=== PATIENT | female | born 1935 | race Caucasian/White ===

== ENCOUNTER 2017-06-07 13:31 | Emergency (ER) | payer MEDICARE ==
[~2017-06-07] VITALS: Ht 165.1 cm; Wt 69.6 kg
[~2017-06-07 13:31] MED LIST: AMLO10TA4 PO; METO25TA2 PO
[2017-06-07] MEDS ORDERED: SODIUM CHLORIDE 0.9% 1,000ML IVBOLUS ONE (14:00)
[2017-06-07] MEDS ORDERED: SODIUM CHLORIDE FLUSH 10ML SYR IVF ONE (14:00)
[2017-06-07] MEDS ORDERED: SOLI10TA2 PO (14:07)
[2017-06-07] MEDS ORDERED: ANAS1TAB PO (14:07)
[2017-06-07 14:08] LABS: HEMATOCRIT 41.5 % (34.6-47.8)
[2017-06-07 14:19] LABS: ASPARTATE AMINO TRANSFERASE 4 U/L (15-37); BLOOD UREA NITROGEN 17 mg/dL (7-18)
[2017-06-07] MEDS ORDERED: OMNIPAQUE 350 MG/ML, 100ML BOTTLE ONE (16:51)
[2017-06-07 16:55] VITALS: BP 125/75
== END 2017-06-07 16:57 | disposition home or self-care (01) ==
LOC: ED 16:10
DX: K57.32 Diverticulitis of large intestine without perforation or abscess without bleeding (principal); I11.9 Hypertensive heart disease without heart failure
CPT/HCPCS: 36415; 74177; 80053; 81001; 83605; 83690; 85025; 85610; 87086; 96360; 96361; 99285; J7030; Q9967

== ENCOUNTER 2017-11-26 14:52 | Inpatient (IN) | payer MEDICARE, OTHER ==
[~2017-11-26] VITALS: Ht 157.5 cm; Wt 78.6 kg
[~2017-11-26 14:52] MED LIST changes: +ANAS1TAB PO; +SOLI10TA2 PO
[2017-11-26] MEDS ORDERED: MORPHINE SULFATE 4 MG/ML, 1ML ONE ×2 (15:25→17:03)
[2017-11-26] MEDS ORDERED: ONDANSETRON ODT 4 MG ONE (15:25)
[2017-11-26] MEDS: MORPHINE SULFATE 4 MG/ML, 1ML IVPush PRN ×2 (15:29→17:05)
[2017-11-26] MEDS ORDERED: SODIUM CHLORIDE FLUSH 10ML SYR IVF ONE (15:30)
[2017-11-26] MEDS ORDERED: ONDANSETRON ODT 4 MG PO ONE (15:30)
[2017-11-26] MEDS ORDERED: ASPI-515 PO (17:09)
[2017-11-26] MEDS ORDERED: SODIUM CHLORIDE 0.9% 1,000 ML IV ONE ×2 (17:22→17:23)
[2017-11-26] MEDS ORDERED: MORPHINE SULFATE 4 MG/ML, 1ML IVPush PRN (17:30)
[2017-11-26] MEDS ORDERED: SODIUM CHLORIDE FLUSH 10ML SYR IVF PRN (17:30)
[2017-11-26 17:50] LABS: INTERNATIONAL NORMALIZED RATIO 0.99 (0.93-1.1); PROTHROMBIN TIME 10.3 Seconds (9.6-11.5)
[2017-11-26 17:55] LABS: CHLORIDE 111 mmol/L (98-107)
[2017-11-26 17:58] LABS: BASOPHILS # (AUTO) 0.02 x10^3/uL (0-0.1); BASOPHILS % (AUTO) 0 % (0-1); EOSINOPHILS # (AUTO) 0.01 x10^3/uL (0-0.4); EOSINOPHILS % (AUTO) 0 % (1-7); LYMPHOCYTES # (AUTO) 0.79 x10^3/uL (1-3.4); LYMPHOCYTES % (AUTO) 7 % (22-44); MD NO; MEAN CORPUSCULAR HEMOGLOBIN 29.9 pg (27.0-34.8); MEAN CORPUSCULAR HGB CONC 33.6 g/dL (32.4-35.8); MEAN CORPUSCULAR VOLUME 88.9 fL (80-100); MEAN PLATELET VOLUME 8.1 fL (7.4-10.4); MONOCYTES # (AUTO) 0.34 x10^3/uL (0.2-0.8); MONOCYTES % (AUTO) 3 % (2-9); NEUTROPHILS # (AUTO) 11.02 x10^3/uL (1.8-6.8); NEUTROPHILS % (AUTO) 91 % (42-75); PLATELET COUNT 312 x10^3/uL (130-400); RED BLOOD COUNT 4.81 x10^6/uL (3.82-5.3); RED CELL DISTRIBUTION WIDTH 14.1 % (9.6-15.2)
[2017-11-26 18:02] LABS: ALANINE AMINOTRANSFERASE 15 U/L (12-78); ALBUMIN 3.5 g/dL (3.4-5.0); ALKALINE PHOSPHATASE 130 U/L (45-117); ANION GAP 9 mmol/L (5-15); BILIRUBIN,TOTAL 0.3 mg/dL (0.2-1.0); CALCIUM 9.2 mg/dL (8.5-10.1); CREATININE 1.09 mg/dL (0.55-1.02); TOTAL PROTEIN 7.1 g/dL (6.4-8.2)
[2017-11-26] MEDS ORDERED: POLYETHYLENE GLYCOL 17 GM PACKET PO PRN (21:00)
[2017-11-26] MEDS ORDERED: DIAZEPAM 5 MG/ML, 2ML IV PRN (21:00)
[2017-11-26] MEDS ORDERED: ACETAMINOPHEN 325 MG TABLET PO PRN (21:00)
[2017-11-26] MEDS ORDERED: morphine SULFATE 10 MG/ML, 1ML IVPush PRN (21:00)
[2017-11-26] MEDS ORDERED: hydrALAzine 20 MG/ML, 1ML IVPush PRN (21:00)
[2017-11-26] MEDS ORDERED: ONDANSETRON 2MG/ML, 2ML IVPush PRN (21:00)
[2017-11-26] MEDS ORDERED: BISACODYL 10 MG SUPP PR PRN (21:00)
[2017-11-26] MEDS ORDERED: DOCUSATE 100 MG CAPSULE PO PRN (21:00)
[2017-11-26 21:18] VITALS: BP 135/85
[2017-11-26 21:20] LABS: FREE T4 (FREE THYROXINE) 1.25 ng/dL (0.76-1.46); THYROID STIMULATING HORMONE 3.77 mIU/L (0.358-3.740)
[2017-11-26] MEDS: AMLODIPINE 5 MG TABLET PO SCH (21:21)
[2017-11-26] MEDS: METOPROLOL SUCCINATE 25 MG TAB.ER.24H PO SCH (21:22)
[2017-11-26] MEDS: HYDROcodone/APAP 5/325 TABLET PO PRN ×2 (21:22→22:00)
[2017-11-26 21:23] LABS: HEMOGLOBIN A1C 5.3 % (4.2-6.3)
[2017-11-26] MEDS: HEPARIN 5,000 UNITS/ML, 1ML SQ SCH (21:23)
[2017-11-26] MEDS: SODIUM CHLORIDE 0.9% 1,000 ML IV SCH (21:23)
[2017-11-27] MEDS: HYDROcodone/APAP 5/325 TABLET PO PRN ×5 (01:55→23:13)
[2017-11-27 02:00] VITALS: BP 146/82
[2017-11-27 05:21] LABS: BASOPHILS # (AUTO) 0.02 x10^3/uL (0-0.1); BASOPHILS % (AUTO) 0 % (0-1); EOSINOPHILS # (AUTO) 0.01 x10^3/uL (0-0.4); EOSINOPHILS % (AUTO) 0 % (1-7); LYMPHOCYTES % (AUTO) 9 % (22-44); MD NO; MEAN CORPUSCULAR HEMOGLOBIN 29.9 pg (27.0-34.8); MEAN CORPUSCULAR HGB CONC 33.8 g/dL (32.4-35.8); MEAN CORPUSCULAR VOLUME 88.4 fL (80-100); MEAN PLATELET VOLUME 7.9 fL (7.4-10.4); MONOCYTES # (AUTO) 0.29 x10^3/uL (0.2-0.8); MONOCYTES % (AUTO) 4 % (2-9); NEUTROPHILS # (AUTO) 6.75 x10^3/uL (1.8-6.8); NEUTROPHILS % (AUTO) 87 % (42-75); PLATELET COUNT 266 x10^3/uL (130-400); RED BLOOD COUNT 4.27 x10^6/uL (3.82-5.3); RED CELL DISTRIBUTION WIDTH 13.8 % (9.6-15.2)
[2017-11-27 05:25] LABS: CHLORIDE 109 mmol/L (98-107)
[2017-11-27 05:36] LABS: ALANINE AMINOTRANSFERASE 15 U/L (12-78); ALBUMIN 3.1 g/dL (3.4-5.0); ALKALINE PHOSPHATASE 118 U/L (45-117); ANION GAP 9 mmol/L (5-15); BILIRUBIN,TOTAL 0.5 mg/dL (0.2-1.0); CALCIUM 8.4 mg/dL (8.5-10.1); CHOL/HDL RATIO 5.1; CHOLESTEROL, TOTAL 179 mg/dL (140-239); CREATININE 1.05 mg/dL (0.55-1.02); HDL CHOL % 20 % (28-40); HDL CHOLESTEROL (DIRECT) 35 mg/dL (40-60); LDL CHOLESTEROL,CALCULATED 112 mg/dL (54-169); LDL/HDL RATIO 3.2 (0.5-3.0); TOTAL PROTEIN 6.4 g/dL (6.4-8.2); TRIGLYCERIDES 161 mg/dL (50-200); VLDL CHOLESTEROL 32 mg/dL (0-25)
[2017-11-27] MEDS: HEPARIN 5,000 UNITS/ML, 1ML SQ SCH ×4 (05:40→23:41)
[2017-11-27] MEDS: SODIUM CHLORIDE 0.9% 1,000 ML IV SCH (05:52)
[2017-11-27] MEDS: ASPIRIN 81 MG TABLET EC PO SCH (09:33)
[2017-11-27] MEDS: OXYBUTYNIN CHLORIDE 5 MG TABLET PO SCH ×3 (09:37→20:42)
[2017-11-27] MEDS: ANASTROZOLE 1 MG TABLET PO SCH (09:41)
[2017-11-27] MEDS: AMLODIPINE 5 MG TABLET PO SCH (09:43)
[2017-11-27 10:15] VITALS: BP 151/77
[2017-11-27 16:18] VITALS: BP 123/69
[2017-11-27 18:49] VITALS: BP 132/74
[2017-11-27] MEDS: METOPROLOL SUCCINATE 25 MG TAB.ER.24H PO SCH (21:00)
[2017-11-28 03:55] VITALS: BP 141/82
[2017-11-28] MEDS: HYDROcodone/APAP 5/325 TABLET PO PRN (04:13)
[2017-11-28 05:40] LABS: BASOPHILS # (AUTO) 0.03 x10^3/uL (0-0.1); BASOPHILS % (AUTO) 0 % (0-1); EOSINOPHILS # (AUTO) 0.14 x10^3/uL (0-0.4); EOSINOPHILS % (AUTO) 2 % (1-7); LYMPHOCYTES # (AUTO) 1.16 x10^3/uL (1-3.4); LYMPHOCYTES % (AUTO) 16 % (22-44); MD NO; MEAN CORPUSCULAR HEMOGLOBIN 29.8 pg (27.0-34.8); MEAN CORPUSCULAR HGB CONC 33.8 g/dL (32.4-35.8); MEAN CORPUSCULAR VOLUME 88.2 fL (80-100); MEAN PLATELET VOLUME 8.3 fL (7.4-10.4); MONOCYTES # (AUTO) 0.44 x10^3/uL (0.2-0.8); MONOCYTES % (AUTO) 6 % (2-9); NEUTROPHILS # (AUTO) 5.68 x10^3/uL (1.8-6.8); NEUTROPHILS % (AUTO) 76 % (42-75); PLATELET COUNT 271 x10^3/uL (130-400); RED BLOOD COUNT 4.46 x10^6/uL (3.82-5.3); RED CELL DISTRIBUTION WIDTH 13.8 % (9.6-15.2)
[2017-11-28 05:51] LABS: ANION GAP 11 mmol/L (5-15); CALCIUM 8.8 mg/dL (8.5-10.1); CHLORIDE 106 mmol/L (98-107)
[2017-11-28 05:53] LABS: CREATININE 0.93 mg/dL (0.55-1.02)
[2017-11-28] MEDS ORDERED: KETAMINE 10 MG/ML, 20ML ONE (08:48)
[2017-11-28] MEDS ORDERED: MIDAZOLAM 1 MG/ML, 2ML ONE (08:49)
[2017-11-28] MEDS ORDERED: FENTANYL PF 250 MCG/5ML ONE (08:49)
[2017-11-28] MEDS ORDERED: DEXMEDETOMIDINE 200 MCG/2 ML ONE (08:52)
[2017-11-28] MEDS ORDERED: FAMOTIDINE 20 MG/2 ML ONE (08:52)
[2017-11-28] MEDS: ASPIRIN 81 MG TABLET EC PO SCH (09:00)
[2017-11-28] MEDS ORDERED: DEXAMETHASONE 4 MG/ML, 1ML ONE (09:03)
[2017-11-28] MEDS ORDERED: PHENYLEPHRINE 10 MG/ML ONE (09:03)
[2017-11-28] MEDS ORDERED: KETOROLAC 30 MG/1 ML ONE (09:03)
[2017-11-28] MEDS ORDERED: PROPOFOL 10 MG/ML, 20ML ONE (09:32)
[2017-11-28] MEDS ORDERED: CEFAZOLIN 1,000 MG ONE (09:32)
[2017-11-28] MEDS ORDERED: SUCCINYLCHOLINE 20 MG/ML, 10ML ONE (09:32)
[2017-11-28] MEDS ORDERED: LABETALOL 5MG/ML, 20ML IV PRN (10:00)
[2017-11-28] MEDS ORDERED: PROMETHAZINE 25 MG/ML, 1ML IV PRN (10:00)
[2017-11-28] MEDS ORDERED: MEPERIDINE/PF 25MG/0.5ML IVPush PRN (10:00)
[2017-11-28] MEDS ORDERED: morphine SULFATE 10 MG/ML, 1ML IV PRN (10:00)
[2017-11-28] MEDS ORDERED: OXYcodone 5 MG/5 ML ORAL.SOL UDC PO PRN (10:00)
[2017-11-28] MEDS ORDERED: ACETAMINOPHEN 325 MG TABLET PO PRN (10:00)
[2017-11-28] MEDS ORDERED: hydrALAzine 20 MG/ML, 1ML IV PRN (10:00)
[2017-11-28] MEDS ORDERED: FENTANYL PF 100 MCG/2ML IV PRN (10:00)
[2017-11-28] MEDS ORDERED: OXYcodone 5 MG/5 ML ORAL.SOL UDC ONE (10:04)
[2017-11-28] MEDS ORDERED: FENTANYL PF 100 MCG/2ML ONE (10:04)
[2017-11-28] MEDS ORDERED: ACETAMINOPHEN 650 MG/20.3 ML UDC ONE (10:05)
[2017-11-28] MEDS: ANASTROZOLE 1 MG TABLET PO SCH (12:40)
[2017-11-28] MEDS: OXYBUTYNIN CHLORIDE 5 MG TABLET PO SCH ×3 (12:43→20:44)
[2017-11-28] MEDS: AMLODIPINE 5 MG TABLET PO SCH (12:43)
[2017-11-28 13:33] VITALS: BP 136/75
[2017-11-28] MEDS ORDERED: CEFAZOLIN PMX 1GM/50ML 50 ML IV SCH ×2 (17:00→18:00)
[2017-11-28] MEDS: HYDROcodone/APAP 7.5-325MG/15ML UDC PO PRN (18:43)
[2017-11-28 20:07] VITALS: BP 129/79
[2017-11-28] MEDS: METOPROLOL SUCCINATE 25 MG TAB.ER.24H PO SCH (20:44)
[2017-11-28] MEDS: DOCUSATE 100 MG CAPSULE PO SCH (20:45)
[2017-11-28 23:50] VITALS: BP 130/79
[2017-11-29] MEDS: CEFAZOLIN 1,000 MG in SODIUM CHLORIDE 0.9% 50 ML IV SCH ×2 (02:32→10:31)
[2017-11-29 03:50] VITALS: BP 135/75
[2017-11-29] MEDS: HYDROcodone/APAP 7.5-325MG/15ML UDC PO PRN ×6 (04:12→22:55)
[2017-11-29 05:27] LABS: BASOPHILS # (AUTO) 0.02 x10^3/uL (0-0.1); BASOPHILS % (AUTO) 0 % (0-1); EOSINOPHILS % (AUTO) 0 % (1-7); LYMPHOCYTES # (AUTO) 0.69 x10^3/uL (1-3.4); LYMPHOCYTES % (AUTO) 8 % (22-44); MD NO; MEAN CORPUSCULAR HEMOGLOBIN 30.2 pg (27.0-34.8); MEAN CORPUSCULAR HGB CONC 33.8 g/dL (32.4-35.8); MEAN CORPUSCULAR VOLUME 89.4 fL (80-100); MEAN PLATELET VOLUME 8.1 fL (7.4-10.4); MONOCYTES # (AUTO) 0.59 x10^3/uL (0.2-0.8); MONOCYTES % (AUTO) 7 % (2-9); NEUTROPHILS # (AUTO) 7.15 x10^3/uL (1.8-6.8); NEUTROPHILS % (AUTO) 85 % (42-75); PLATELET COUNT 264 x10^3/uL (130-400); RED BLOOD COUNT 3.71 x10^6/uL (3.82-5.3); RED CELL DISTRIBUTION WIDTH 13.8 % (9.6-15.2)
[2017-11-29 05:59] LABS: ANION GAP 7 mmol/L (5-15); CALCIUM 8.9 mg/dL (8.5-10.1); CHLORIDE 111 mmol/L (98-107); CREATININE 1.13 mg/dL (0.55-1.02)
[2017-11-29] MEDS: ENOXAPARIN 40 MG/0.4 ML SQ SCH (06:21)
[2017-11-29 07:18] VITALS: BP 156/80
[2017-11-29] MEDS: DOCUSATE 100 MG CAPSULE PO SCH ×2 (09:00→21:18)
[2017-11-29] MEDS: ASPIRIN 81 MG TABLET EC PO SCH (10:16)
[2017-11-29] MEDS: ANASTROZOLE 1 MG TABLET PO SCH (10:16)
[2017-11-29] MEDS: AMLODIPINE 5 MG TABLET PO SCH (10:17)
[2017-11-29] MEDS: OXYBUTYNIN CHLORIDE 5 MG TABLET PO SCH ×3 (10:18→21:19)
[2017-11-29 13:58] VITALS: BP 145/75
[2017-11-29] MEDS: morphine SULFATE 10 MG/ML, 1ML IV PRN ×4 (14:58→22:25)
[2017-11-29 15:51] LABS: MICROSCOPIC NOT IND
[2017-11-29 15:59] LABS: CULTURE INDICATED? NO
[2017-11-29 18:42] VITALS: BP 144/76
[2017-11-29] MEDS: METOPROLOL SUCCINATE 25 MG TAB.ER.24H PO SCH (21:19)
[2017-11-30 02:59] VITALS: BP 161/83
[2017-11-30] MEDS: HYDROcodone/APAP 7.5-325MG/15ML UDC PO PRN ×2 (03:18→11:51)
[2017-11-30] MEDS: ENOXAPARIN 40 MG/0.4 ML SQ SCH (06:29)
[2017-11-30 07:07] VITALS: BP 148/78
[2017-11-30] MEDS: ANASTROZOLE 1 MG TABLET PO SCH (08:25)
[2017-11-30] MEDS: AMLODIPINE 5 MG TABLET PO SCH (08:26)
[2017-11-30] MEDS: ASPIRIN 81 MG TABLET EC PO SCH (08:26)
[2017-11-30] MEDS: OXYBUTYNIN CHLORIDE 5 MG TABLET PO SCH (08:26)
[2017-11-30] MEDS: DOCUSATE 100 MG CAPSULE PO SCH (08:26)
[2017-11-30 14:00] VITALS: BP 138/74
== END 2017-11-30 14:27 | DRG 480 ==
LOC: ED 17:21 → EDIP 17:22 → ED 17:54 → 4NOR 18:21
PROVIDERS: ADMIT Hospitalist; ATTEND Hospitalist
PROC: 0QS636Z Reposition Right Upper Femur with Intramedullary Internal Fixation Device, Percutaneous Approach (ICD-10-PCS; principal; 2017-11-28 09:00)
DX: S72.141A Displaced intertrochanteric fracture of right femur, initial encounter for closed fracture (principal); J96.00 Acute respiratory failure, unspecified whether with hypoxia or hypercapnia; N18.3 Chronic kidney disease, stage 3 (moderate); D72.829 Elevated white blood cell count, unspecified; Z96.649 Presence of unspecified artificial hip joint; I25.10 Atherosclerotic heart disease of native coronary artery without angina pectoris; W01.0XXA Fall on same level from slipping, tripping and stumbling without subsequent striking against object, initial encounter; I12.9 Hypertensive chronic kidney disease with stage 1 through stage 4 chronic kidney disease, or unspecified chronic kidney disease; Z95.5 Presence of coronary angioplasty implant and graft; Z91.81 History of falling; Z86.73 Personal history of transient ischemic attack (TIA), and cerebral infarction without residual deficits; Z85.3 Personal history of malignant neoplasm of breast; Z95.818 Presence of other cardiac implants and grafts; Y93.89 Activity, other specified; Y92.89 Other specified places as the place of occurrence of the external cause; Y99.8 Other external cause status; Z92.3 Personal history of irradiation
CPT/HCPCS: 36415; 71045; 76000; 80048; 80053; 80061; 81003; 83036; 83735; 84439; 84443; 85014; 85018; 85025; 85610; 85730; 93005; 96374; 96376; C1713; J0690; J1100; J1644; J1650; J1885; J2250; J2704; J3010; Q0162; J0330; J2270; J2370; J7030; S0028